=== PATIENT | male | born 1975 | race Caucasian/White ===

== ENCOUNTER 2017-11-25 19:50 | Emergency (ER) | payer SELFPAY ==
[2017-11-25] MEDS ORDERED: HYDROcodone/Acetaminophen 5/325 mg Tablet ONE (20:15)
[2017-11-25] MEDS ORDERED: Lidocaine 1% w/Epinephrine 1:100K 20 ML VIAL ONE (20:23)
== END 2017-11-25 21:10 | disposition home or self-care (01) ==
LOC: ERS 19:50
DX: M27.2 Inflammatory conditions of jaws (principal); F17.210 Nicotine dependence, cigarettes, uncomplicated
CPT/HCPCS: 10060; J2001

== ENCOUNTER 2019-05-06 22:42 | Emergency (ER) | payer SELFPAY ==
[2019-05-06] MEDS ORDERED: Morphine 4 MG/ML VIAL ONE (23:16)
[2019-05-06] MEDS ORDERED: Ondansetron PF 4 MG/2 ML Vial ONE (23:17)
--- NOTE | 2019-05-06 23:32 | RAD ---
Left foot:3 views INDICATION:Injury with pain COMPARISON:None FINDINGS: Tarsals appear intact. Metatarsals appear intact. Phalanges appear intact. Tarsal metatarsal joints, MTP joints, and IP joints appear unremarkable. Soft tissues unremarkable. IMPRESSION: No acute finding
--- NOTE | 2019-05-06 23:33 | RAD ---
Left ankle: 3 VIEWS INDICATION:Injury and pain COMPARISON:None FINDINGS: Mild soft tissue swelling. No evidence of fracture. No osseous abnormality identified. IMPRESSION: No evidence of fracture
[2019-05-07] MEDS ORDERED: Ketorolac Tromethamine 30 MG/ML VIAL ONE (00:21)
== END 2019-05-07 01:05 | disposition home or self-care (01) ==
LOC: ERS 22:42
DX: S99.922A Unspecified injury of left foot, initial encounter (principal); S99.912A Unspecified injury of left ankle, initial encounter; F17.210 Nicotine dependence, cigarettes, uncomplicated; V29.9XXA Motorcycle rider (driver) (passenger) injured in unspecified traffic accident, initial encounter
CPT/HCPCS: 96374; 96375; J1885; J2270; J2405

== ENCOUNTER 2020-11-30 20:30 | Inpatient (IN) | payer OTHER, SELFPAY ==
[2020-11-30] MEDS ORDERED: Ondansetron PF 4 MG/2 ML Vial ONE ×2 (21:18→23:14)
[2020-11-30] MEDS ORDERED: CEFAZOLIN 1 GM VIAL ONE (21:18)
[2020-11-30] MEDS ORDERED: Morphine 4 MG/ML VIAL ONE (21:18)
[2020-11-30] MEDS ORDERED: Boostrix 0.5 ML (Tdap) VIAL ONE ×2 (21:18→22:14)
[2020-11-30 22:01] LABS: #Basophils 0.1 thou/uL (0.0-0.2); #Eosinphils 0.2 thou/uL (0.0-0.7); #Lymphocytes 1.5 thou/uL (1.20-3.40); #Monocytes 0.5 thou/uL (0.11-0.59); %Basophils 0.6 % (0.0-1.0); %Eosinophils 1.7 % (0.0-10.0); %Monocytes 5.8 % (0.0-10.0); Hemoglobin 15.6 g/dL (14.0-18.0); Mean Corpuscular HGB CONC 34.6 g/dL (32.0-36.0); Mean Corpuscular Hemoglobin 30.6 pg (27.0-31.0); Mean Corpuscular Volume 88.6 fL (78.0-98.0); Mean Platelet Volume 6.9 fL (7.4-10.4); Platelet Count 299 thou/uL (130-400); RBC Distribution Width 11.6 % (11.5-14.5); White Blood Cell (WBC) Count 9.2 thou/uL (4.8-10.8)
[2020-11-30 22:11] LABS: ALT (SGPT) 21 U/L (8-55); AST (SGOT) 19 U/L (5-34); Albumin 4.4 g/dL (3.5-5.0); Alkaline Phosphatase 126 U/L (40-110); Anion Gap 12 mmol/L (10-20); BUN (Urea Nitrogen) 14 mg/dL (8.9-20.6); Bilirubin, Total 0.5 mg/dL (0.2-1.2); Calc. Creatinine Clearance 0 mL/min (70-130); Calcium 9.7 mg/dL (7.8-10.44); Carbon Dioxide 29 mmol/L (22-29); Chloride 100 mmol/L (98-107); Globulin 3.4 g/dL (2.4-3.5); Glucose 111 mg/dL (70-105); Potassium 3.9 mmol/L (3.5-5.1); Protein, Total 7.8 g/dL (6.0-8.3); Sodium 137 mmol/L (136-145)
[2020-11-30] MEDS ORDERED: Bupivacaine PF 0.5% 30 ML VIAL ONE (22:33)
[2020-11-30] MEDS ORDERED: Neomycin-Polymyxin 1 ML AMP ONE (22:33)
[2020-11-30] MEDS ORDERED: Bacitracin Zinc Ointment 30 gm TUBE ONE (22:33)
[2020-11-30] MEDS ORDERED: Ketorolac Tromethamine 30 MG/ML VIAL ONE (22:38)
[2020-11-30 23:11] LABS: SARS-CoV-2 NAA Rapid Test Not Detected (NotDetected)
[2020-11-30] MEDS ORDERED: Dexamethasone 20 MG/5 ML VIAL ONE (23:14)
[2020-11-30] MEDS ORDERED: Lidocaine 1% PF 5 ML VIAL ONE (23:14)
[2020-11-30] MEDS ORDERED: Rocuronium Bromide 10 MG/ML (10ML VIAL) ONE (23:14)
[2020-11-30] MEDS ORDERED: Glycopyrrolate 0.2 MG/ML 5 ML SYRINGE ONE (23:14)
[2020-11-30] MEDS ORDERED: PHENYLEPHRINE-NS 100 MCG/ML 10 ML SYRINGE ONE (23:14)
[2020-11-30] MEDS ORDERED: ePHEDrine 50 MG/ML VIAL ONE (23:14)
[2020-11-30] MEDS ORDERED: PROPOFOL 200 MG/20 ML VIAL ONE (23:14)
[2020-12-01] MEDS ORDERED: Ondansetron PF 4 MG/2 ML Vial IVP PRN (01:10)
[2020-12-01] MEDS ORDERED: Bisacodyl 10 MG SUPP PR PRN (01:10)
[2020-12-01] MEDS ORDERED: traMADol HCl 50 MG TAB PO PRN (01:10)
[2020-12-01] MEDS ORDERED: Promethazine HCl 25 MG/ML VIAL IM PRN ×2 (01:10→01:18)
[2020-12-01] MEDS ORDERED: Communication Order-Pharmacy FS SCH (01:15)
[2020-12-01] MEDS ORDERED: Promethazine HCl 25 MG/ML VIAL IVPB PRN (01:18)
[2020-12-01] MEDS ORDERED: Ondansetron HCl/PF 4 MG/2 ML Vial IVP PRN (01:18)
[2020-12-01] MEDS ORDERED: Meperidine HCl/PF 25 MG/ML VIAL IM PRN (01:20)
[2020-12-01] MEDS ORDERED: TETANUS AND DIPHTHERIA TOX/PF 0.5 ML DISP.SYRIN IM SCH (02:00)
[2020-12-01 03:13] VITALS: BMI 29.1
[2020-12-01] MEDS ORDERED: Thrombin 5000 UNITS/5 ML VIAL ONE (04:49)
[2020-12-01] MEDS: Vancomycin 1 GM in Premix Bag 1 BAG IVPB SCH ×3 (05:11→21:16)
[2020-12-01] MEDS: Sodium Chloride 0.9% 1,000 ML IV SCH ×3 (05:12→21:17)
[2020-12-01] MEDS ORDERED: Ketorolac Tromethamine 30 MG/ML VIAL IVP SCH (06:00)
[2020-12-01] MEDS: Aspirin 81 mg Enteric Coated Tablet PO SCH ×2 (08:21→21:17)
[2020-12-01] MEDS: Morphine 4 MG/ML VIAL SLOW IVP PRN ×3 (08:21→22:03)
[2020-12-01] MEDS: HYDROcodone/Acetaminophen 5/325 mg Tablet PO PRN ×2 (09:21→15:13)
[2020-12-01] MEDS: Ketorolac Tromethamine 30 MG/ML VIAL IVP PRN (12:31)
[2020-12-02] MEDS: Vancomycin 1 GM in Premix Bag 1 BAG IVPB SCH (05:22)
[2020-12-02] MEDS: HYDROcodone/Acetaminophen 5/325 mg Tablet PO PRN ×4 (06:49→21:07)
[2020-12-02] MEDS: Aspirin 81 mg Enteric Coated Tablet PO SCH ×2 (08:27→21:00)
[2020-12-02 12:55] LABS: Vancomycin, Trough 12.3 ug/mL
[2020-12-02] MEDS ORDERED: Morphine 4 MG/ML VIAL SLOW IVP PRN (13:22)
[2020-12-02] MEDS: VANCOMYCIN 1.25 GM/250 ML BAG 1.25 GM in Premix Bag 1 BAG IVPB SCH ×2 (14:16→21:00)
[2020-12-02] MEDS: Sodium Chloride 0.9% 1,000 ML IV SCH ×2 (14:50→18:27)
[2020-12-03] MEDS: Sodium Chloride 0.9% 1,000 ML IV SCH (05:00)
[2020-12-03] MEDS: HYDROcodone/Acetaminophen 5/325 mg Tablet PO PRN ×3 (05:09→16:55)
[2020-12-03] MEDS: VANCOMYCIN 1.25 GM/250 ML BAG 1.25 GM in Premix Bag 1 BAG IVPB SCH (05:09)
[2020-12-03] MEDS: Aspirin 81 mg Enteric Coated Tablet PO SCH (08:59)
[2020-12-03] MEDS: Ketorolac Tromethamine 30 MG/ML VIAL IVP PRN (09:00)
[2020-12-03] MEDS ORDERED: Morphine 4 MG/ML VIAL ONE (12:14)
[2020-12-03] MEDS ORDERED: Bacitracin Zinc Ointment 30 gm TUBE ONE (12:30)
[2020-12-03] MEDS ORDERED: Bupivacaine PF 0.5% 30 ML VIAL ONE (12:30)
[2020-12-03] MEDS ORDERED: Fentanyl 100 MCG/2 ML VIAL ONE ×2 (12:41→14:15)
[2020-12-03] MEDS ORDERED: PHENYLEPHRINE-NS 100 MCG/ML 10 ML SYRINGE ONE (13:04)
[2020-12-03] MEDS ORDERED: Dexamethasone 20 MG/5 ML VIAL ONE (13:04)
[2020-12-03] MEDS ORDERED: Ondansetron PF 4 MG/2 ML Vial ONE (13:04)
[2020-12-03] MEDS ORDERED: PROPOFOL 200 MG/20 ML VIAL ONE (13:04)
[2020-12-03] MEDS ORDERED: ePHEDrine 50 MG/ML VIAL ONE (13:04)
[2020-12-03] MEDS ORDERED: Lidocaine 1% PF 5 ML VIAL ONE (13:04)
[2020-12-03] MEDS ORDERED: Glycopyrrolate 0.2 MG/ML 5 ML SYRINGE ONE (13:04)
[2020-12-03] MEDS ORDERED: ePHEDrine Sulfate 50 MG/10 ML VIAL ONE (13:29)
[2020-12-03] MEDS ORDERED: Ketorolac Tromethamine 30 MG/ML VIAL IVP SCH (15:30)
[2020-12-03] MEDS ORDERED: Vancomycin 1 GM in Premix Bag 1 BAG IVPB SCH (15:30)
[2020-12-03 16:43] VITALS: BP 135/89; TEMP 97.4
[2020-12-03] MEDS ORDERED: Ketorolac Tromethamine 30 MG/ML VIAL IM SCH (16:45)
[2020-12-04] MEDS ORDERED: FLU VACC QS2021-22(6MOS UP)/PF 60 MCG/0.5 ML SYRINGE IM ONE (09:00)
== END 2020-12-03 17:50 | disposition home or self-care (01) | DRG 906 ==
LOC: ERS 20:30 → SDC/OP 23:11 → SURG B 12-01 01:10
PROVIDERS: ADMIT Orthopaedic Surgery Hand Surgery; ATTEND Orthopaedic Surgery Hand Surgery
PROC: 0RCV0ZZ Extirpation of Matter from Left Metacarpophalangeal Joint, Open Approach (ICD-10-PCS; 2020-12-01)
PROC: 0PBS0ZZ Excision of Left Thumb Phalanx, Open Approach (ICD-10-PCS; 2020-12-01)
PROC: 0PBS0ZZ Excision of Left Thumb Phalanx, Open Approach (ICD-10-PCS; principal; 2020-12-03)
DX: S61.442A Puncture wound with foreign body of left hand, initial encounter (principal); L03.114 Cellulitis of left upper limb; F17.210 Nicotine dependence, cigarettes, uncomplicated; Y92.89 Other specified places as the place of occurrence of the external cause; Z20.822 Contact with and (suspected) exposure to COVID-19; W29.4XXA Contact with nail gun, initial encounter
CPT/HCPCS: 36415; 76000; 80053; 80202; 85025; 87040; 87070; 87205; 90471; 90715; 93005; 96365; 96375; J0690; J1100; J1885; J2270; J2405; J2704; J3010; J3370; J3490; J7050; S0020; U0002

== ENCOUNTER 2020-12-15 04:11 | Emergency (ER) | payer SELFPAY ==
[2020-12-15] MEDS ORDERED: Acetaminophen 500 MG TAB ONE (04:54)
== END 2020-12-15 06:09 | disposition home or self-care (01) ==
LOC: ERS 04:11
DX: M25.532 Pain in left wrist (principal); R60.0 Localized edema; F17.210 Nicotine dependence, cigarettes, uncomplicated